=== PATIENT | female | born 1955 | race Caucasian/White ===

== ENCOUNTER → 2016-09-23 | Outpatient (CLI) | payer OTHER ==
--- NOTE | 2016-09-23 17:26 | PN ---
Chapis is coming in for a compliancy check. She is diagnosed having moderately severe obstructive sleep apnea with an AHI of 22. She is feeling better, yet she is still a bit somnolent and sleepy during the day with an [place] score of 13. She is feeling more refreshed during the day, but she was expecting more improvement than that. Upon further questioning, it seems that the mask that she was given was a bit uncomfortable, and she is waking up constantly throughout the night. For that reason I recommended changing her to a DreamWare small-size pillow. Meanwhile, the patient's compliancy was checked. Based on available data, the patient's average CPAP use is 6.7 hours per night and the patient's AHI is down to 1. Leak factor is only 2 L/minute and her CPAP use for more than 4 hours is 29 out of 30. She has fibromyalgia. BP is 150/70, pulse 94, respiration 16, temperature 98.2. Weight is 177. GENERAL APPEARANCE: Calm, comfortable. HEENT: Short neck. Crowding of the posterior pharynx. No goiter or neck mass. LUNGS: Clear to auscultation. HEART: Sounds are regular rate and rhythm. Normal S1, S2. ABDOMEN: Soft, nontender. No organomegaly. EXTREMITIES: No edema. No cyanosis or clubbing. IMPRESSION: 1. Symptomatic obstructive sleep apnea, moderate to severe; AHI of 22. The patient is benefitting from CPAP therapy. 2. Fibromyalgia. 3. Nocturnal arousals. 4. Chronic pain. 5. Chronic fatigue. 6. Hypertension. PLAN: 1. Switch this patient to DreamWare small-size nasal pillows. 2. Continue CPAP therapy with the same level of pressure. 3. Implement good sleep hygiene measures. 4. Follow up with Rheumatology regarding fibromyalgia. 5. See me back in a year's time in followup; earlier if needed.
== END | disposition home or self-care (01) ==
LOC: SLEEP 13:58
PROVIDERS: ATTEND Internal Medicine Critical Care Medicine
DX: G47.33 Obstructive sleep apnea (adult) (pediatric) (principal); M79.7 Fibromyalgia; G89.29 Other chronic pain; I10 Essential (primary) hypertension

== ENCOUNTER → 2018-01-19 | Outpatient (CLI) | payer MEDICARE, OTHER ==
--- NOTE | 2018-01-28 07:55 | HM ---
HOLTER MONITOR REPORT Patient was monitored for 24 hours. The baseline rhythm is sinus mechanism with intraventricular conduction delay. The average rate was 87 beats per minute, minimum 59, maximum 132 beats per minute. Ventricular ectopic activity was present in the form of rare single PVCs. Supraventricular ectopic activity was present in the form of occasional single PACs. Symptoms of palpitations did not correlate with any significant dysrhythmia. CONCLUSION: 1. Sinus mechanism baseline rhythm with intraventricular conduction delay. 2. Rare ventricular ectopic activity. 3. Occasional single PACs. 4. Symptoms did not correlate with any dysrhythmia. MMODL / IJN: [id number] /
== END | disposition home or self-care (01) ==
LOC: RADECHMAIN 12:27
PROVIDERS: ATTEND Family Medicine
DX: I49.3 Ventricular premature depolarization (principal); I49.1 Atrial premature depolarization
CPT/HCPCS: 93225; 93226

== ENCOUNTER → 2018-08-31 | Outpatient (CLI) | payer MEDICARE, OTHER ==
--- NOTE | 2018-08-31 21:59 | PN ---
PROGRESS NOTE SLEEP CENTER PROGRESS NOTE: Chapis is a 63-year-old female patient who is coming in for followup regarding obstructive sleep apnea. The patient is well known to me. The patient has sleep apnea, moderate to severe, with an AHI of 22. She has been utilizing CPAP at a pressure of 10 cm of water. She is a bit irritated with her CPAP use. She thinks that the nose mask is irritating her nose, and at times she takes it off and she is wondering whether this is going to be a permanent treatment of if there are any alternatives other than CPAP therapy. I checked her CPAP compliance data. The patient has been utilizing her CPAP 27 out of the past 30 days. Her CPAP use for more than 4 hours is . Average CPAP hours is 5.1 hours per night. AHI is down to 0.5. She is seeking other alternatives, including the Inspire system. I noted her blood pressure is elevated and the patient is having adjustments in her blood pressure medication by Dr. Barbour, her granite polisher. She remains on a combination of Celexa for chronic anxiety/depression, Zetia for hyperlipidemia and Motrin for pain. She is also on Wellbutrin in the morning. No other new complaints otherwise for now. REVIEW OF SYSTEMS: Fourteen-point review of systems was done. The positive findings are mentioned above in the history of present illness. PHYSICAL EXAMINATION: BP is 181/76, pulse 80, respirations 16, temperature 98.0. Weight is 173. Height is 5 feet 4 inches and BMI 29.6. GENERAL APPEARANCE: Calm, comfortable. Head is atraumatic, normocephalic. NECK: Supple. There is no JVD. No goiter or neck masses. Mallampati class IV. LUNGS: Clear to auscultation. Heart sounds are regular rate and rhythm. Normal S1, S2. No S3, S4. No murmurs. ABDOMEN: Soft, nontender. No organomegaly. EXTREMITIES: No edema. No cyanosis or clubbing. NEUROLOGIC: Alert and oriented x3. No focal neurological deficits. PSYCHIATRIC: Negative for anxiety or depression. IMPRESSION: 1. Obstructive sleep apnea, moderate to severe; apnea/hypopnea index 22. Treatment is successful, yet her compliance has been suboptimal due to comfort reasons. The patient is using AirFit P10 nose pillows. 2. Hypersomnia, recovered. 3. Hypertension. 4. Anxiety/depression. 5. Hyperlipidemia. PLAN: The patient has been stable. Her treatment has been extremely successful. I would suggest dropping the CPAP pressure down to 8 cm of water to see if there is going to be any improvement in her tolerability while being on CPAP treatment. Meanwhile, I think it is reasonable to re-evaluate this patient to see if there is any ongoing sleep apnea that needs to be further treated. I recommended that she undergo a home sleep study to assess this patient's sleep breathing disorder again. I do not think she is a good candidate for the Inspire system, taking into account that her disease is mild, and she is well treated with CPAP therapy. She will undergo a home sleep study. Her CPAP pressure has been dropped down to 8. She will see me back in followup for further advice after completion of the home sleep study. CHANTE / JANIE: [id number] /
== END ==
LOC: SLEEP 13:56
PROVIDERS: ATTEND Internal Medicine Critical Care Medicine
DX: G47.33 Obstructive sleep apnea (adult) (pediatric) (principal); I10 Essential (primary) hypertension; F32.9 Major depressive disorder, single episode, unspecified; F41.9 Anxiety disorder, unspecified; E78.5 Hyperlipidemia, unspecified; Z99.89 Dependence on other enabling machines and devices

== ENCOUNTER → 2021-01-30 | Outpatient (CLI) | payer MEDICARE ==
--- NOTE | 2021-01-30 11:28 | US ---
EXAMINATION TYPE: US abdomen complete DATE OF EXAM: 01/30/2021 COMPARISON: NONE CLINICAL HISTORY: K80.50 BILLARY COLIC. One instance of abdominal pain after eating jalapenos EXAM MEASUREMENTS: Liver Length: 12.5 cm Gallbladder Wall: 0.2 cm CBD: 0.4 cm Spleen: 9.0 cm Right Kidney: 9.9 x 3.3 x 5.1 cm Left Kidney: 9.8 x 3.8 x 3.4 cm Pancreas: Obscured by bowel gas Liver: wnl Gallbladder: wnl Evidence for sonographic Ng's sign: No CBD: wnl Spleen: wnl Right Kidney: No hydronephrosis or masses seen. Echogenic foci mid pole measuring 0.5 cm Left Kidney: No hydronephrosis or masses seen Upper IVC: wnl Abd Aorta: Atherosclerotic changes visualized. The liver is homogenous. The intrahepatic portion of the IVC and proximal abdominal aorta are within normal limits. There is no evidence of cholelithiasis. Common bile duct is unremarkable. The visu alized portions of the pancreas are homogenous. The spleen is unremarkable. Kidneys are symmetric a nd free of hydronephrosis. No renal lesions are seen. IMPRESSION: Suspect nonobstructing right-sided nephrolithiasis.
== END | disposition home or self-care (01) ==
LOC: RADUSWWP 09:26
PROVIDERS: ATTEND Family Medicine
DX: I70.0 Atherosclerosis of aorta (principal)
CPT/HCPCS: 76700

== ENCOUNTER → 2023-03-17 | Outpatient (CLI) | payer MEDICARE ==
--- NOTE | 2023-03-17 12:41 | MR ---
EXAMINATION TYPE: MR angio head wo con DATE OF EXAM: 03/17/2023 COMPARISON: CT brain C-spine 02/10/2023 HISTORY: Imbalance, memory loss, abnormal CT. TECHNIQUE: Time of flight images focusing on the [place] were performed without contrast. FINDINGS: There is no evidence for focal stenosis, large vessel occlusion, or discrete aneurysm. Hy poplastic anterior communicating and bilateral posterior communicating arteries. IMPRESSION: No evidence for focal stenosis, occlusion or aneurysm.
--- NOTE | 2023-03-17 13:20 | MR ---
EXAMINATION TYPE: MR brain wo con DATE OF EXAM: 03/17/2023 12:36 PM COMPARISON: MRA head 03/17/2023, CT brain C-spine 02/10/2023 CLINICAL INDICATION:Female, 68 years old with history of I67.9, R94.02 ABNORMAL BRAIN SCAN; [facility], TECHNIQUE: Multi planar, multi sequence imaging was performed through the brain. No gadolinium was gi christiano. FINDINGS: The aggarwal-white junctions, ventricular system, and cisterns appear unremarkable. Extensive confluent and patchy areas of high T2/FLAIR signal intensity are seen throughout the periventricular and subcor tical white matter. Additional regions identified within the brenda, medulla oblongata, and superior ce rebellar peduncle. Midline structures show no abnormality. Diffusion-weighted imaging shows no eviden ce of restricted diffusion. There is T2 shine through identified within the right parietal lobe corre sponding to small prior infarct. The susceptibility weighted images do not reveal any evidence for mi rf microwave engineer-hemorrhage. Age-appropriate cerebral brain volume The bone marrow signal is within normal limits. The paranasal sinuses are unremarkable. Bilateral aph graham. IMPRESSION: 1. No evidence of acute/subacute infarct. 2. Extensive confluent and patchy areas of T2/FLAIR signal white matter changes involving the periven tricular and subcortical white matter with additional regions involving the brenda, medulla oblongata, and superior cerebellar peduncle. Wide variety etiologies including multiple sclerosis versus small v essel ischemic disease versus other etiologies such as autoimmune disorders. Further workup is recomm ended. 3. 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
[2023-03-17 14:17] LABS: INR 0.9 (<1.2); Partial Thromboplastin Time 24.6 sec (22.0-30.0); Prothrombin Time 9.6 sec (9.0-12.0)
[2023-03-17 20:55] LABS: C Reactive Protein 0.3 mg/dL (0.00-0.80)
[2023-03-17 21:38] LABS: Cardiolipin Ab IgG Interp Negative (Negative); Cardiolipin Ab IgM Interp Negative (Negative); Cardiolipin IgA Antibody <2.0 U/mL; Cardiolipin IgM Antibody <1.5 U/mL
[2023-03-18 13:59] LABS: APTT 36 Sec(s) (<43); Dilute Russell Viper Venom 38 Sec(s) (<44)
== END | disposition home or self-care (01) ==
LOC: RADMRIMAIN 11:25
PROVIDERS: ATTEND Psychiatry & Neurology Neurology
DX: R94.02 Abnormal brain scan (principal); I67.9 Cerebrovascular disease, unspecified; R41.3 Other amnesia; R26.89 Other abnormalities of gait and mobility
CPT/HCPCS: 36415; 70544; 70551; 82607; 83090; 85610; 85613; 85652; 85730; 86038; 86140; 86147

== ENCOUNTER 2023-08-30 16:46 | Emergency (ER) | payer MEDICARE ==
--- NOTE | 2023-08-30 17:27 | ED ---
General Adult HPI <Marcell Arreguin - Last Filed: 08/30/23 17:27> <Viky Stern - Last Filed: 08/30/23 23:23> - General Stated complaint: Dizziness Time Seen by Provider: 08/30/23 17:26 - History of Present Illness Initial comments: 68-year-old female presenting to the ED with nausea. Patient reports over the past few days has had nausea and secondary to this has had difficulties getting food down. Patient now reports that she is starting to feel generalized weakness as well. Denies abdominal pain. (Marcell Arreguin) 68-year-old female with complaint of of multiple days of nausea decreased oral intake resulting in her feeling lightheaded and weak. Patient states she is concerned that she is dehydrated. Patient reports she has not had any abdominal pain just feels nauseated. No fevers or chills no dysuria no change in bladder habits. She does report she has not had a bowel movement in 1 to 2 days but attributes this to decreased oral intake. Denies any chest pain or palpitations. (Viky Stern) - Related Data Home Medications Medication Instructions Recorded Confirmed Ezetimibe [Zetia] 10 mg PO DAILY 08/18/15 08/18/15 PARoxetine HCL [Paxil] 30 mg PO DAILY 08/18/15 08/18/15 amLODIPine BES/OLMESARTAN MED 1 tab PO DAILY 08/18/15 08/18/15 [Joan 10-40 mg Tablet] Previous Rx's Medication Instructions Recorded Albuterol Inhaler [Ventolin 1 - 2 puff INHALATION Q6HR PRN #1 08/18/15 Inhaler] inhaler Promethaz-Cod 6.25-10 mg/5 ml 5 ml PO Q6HR PRN #100 ml 08/18/15 [Phenergan with Codeine] Ondansetron [Zofran] 4 mg PO Q8HR PRN #12 tab 08/30/23 Allergies Allergy/AdvReac Type Severity Reaction Status Date / Time No Known Allergies Allergy Verified 02/10/23 18:06 Review of Systems ROS Other: All systems not noted in ROS Statement are negative. <Marcell Arreguin - Last Filed: 08/30/23 17:27> ROS Other: All systems not noted in ROS Statement are negative. <Viky Stern - Last Filed: 08/30/23 23:23> ROS Statement: Those systems with pertinent positive or pertinent negative responses have been documented in the HPI. Past Medical History Past Medical History: Asthma, Hyperlipidemia, Hypertension History of Any Multi-Drug Resistant Organisms: None Reported Past Surgical History: Tonsillectomy Past Psychological History: Anxiety, Depression Smoking Status: Never smoker Past Alcohol Use History: None Reported Past Drug Use History: None Reported <Marcell Arreguin - Last Filed: 08/30/23 17:27> General Exam <Marcell Arreguin - Last Filed: 08/30/23 17:27> <Viky Stern - Last Filed: 08/30/23 23:23> - General Exam Comments Initial Comments: Visual Physical Exam Vital signs reviewed General: Well-appearing, nontoxic, no acute distress. Head: Normocephalic, atraumatic Eyes: PERRLA, EOMI ENT: Airway patent Chest: Nonlabored breathing Skin: No visual rash, normal skin tone Neuro: Alert and oriented 3 Musculoskeletal: No gross abnormalities (Marcell Arreguin) Physical Exam GENERAL: Patient is well-developed and well-nourished. Patient is nontoxic and well-hydrated and is in no distress. HENT: Normocephalic, Atraumatic. EYES: PERRL, EOMI PULMONARY: Unlabored respirations. CARDIOVASCULAR: RRR Warm and well perfused extremities ABDOMEN: Soft, nondistended nontender SKIN: No rashes or bruising : Deferred NEUROLOGIC: Alert and oriented Normal speech Normal gait MUSCULOSKELETAL: Moving all extremities with no apparent injury PSYCHIATRIC: No SI/HI (Viky Stern) Course Vital Signs 08/30/23 08/30/23 08/30/23 17:24 19:53 22:05 Temperature 97 F L Pulse Rate 81 80 78 Respiratory 16 18 18 Rate Blood Pressure 171/86 177/94 172/102 O2 Sat by Pulse 98 98 98 Oximetry Medical Decision Making <Marcell Arreguin - Last Filed: 08/30/23 17:27> - Lab Data Result diagrams: 08/30/23 17:27 08/30/23 17:27 <Viky Stern - Last Filed: 08/30/23 23:23> - Medical Decision Making Quicknote portion performed. Signed Marcell Arreguin PA-C (Marcell Arreguin) Was pt. sent in by a medical professional or institution (MONSTER Angulo, ENTRY LEVEL STAFF ACCOUNTANT, urgent care, hospital, or half-way...) When possible be specific @ -No Did you speak to anyone other than the patient for history (EMS, parent, family, police, friend...)? What history was obtained from this source @ -No Did you review nursing and triage notes (agree or disagree)? Why? @ -I reviewed and agree with nursing and triage notes Were old charts reviewed (outside hosp., previous admission, EMS record, old EKG, old radiological studies, urgent care reports/EKG's, half-way records)? Report findings @ -No old charts were reviewed Differential Diagnosis (chest pain, altered mental status, abdominal pain women, abdominal pain men, vaginal bleeding, weakness, fever, dyspnea, syncope, headache, dizziness, GI bleed, back pain, seizure, CVA, palpatations, mental health)? @ -Differential Weakness: Hypoglycemia, shock, sepsis, hyponatremia, anemia, infection, UT, ETOH, adverse medicine reaction, overdose, stroke, this is not meant to be an all-inclusive list. EKG interpreted by me (3pts min.). @ -As above X-rays interpreted by me (1pt min.). @ -None done CT interpreted by me (1pt min.). @ -None done U/S interpreted by me (1pt. min.). @ -None done What testing was considered but not performed or refused? (CT, X-rays, U/S, labs)? Why? @ -None What meds were considered but not given or refused? Why? @ -None Did you discuss the management of the patient with other professionals (professionals i.e. MONSTER Angulo, ENTRY LEVEL STAFF ACCOUNTANT, lab, RT, psych nurse, social media community manager, tax analyst, t eacher, cra officer, case resource manager)? Give summary @ -No Was smoking cessation discussed for >3mins.? @ -No Was critical care preformed (if so, how long)? @ -No Were there social determinants of health that impacted care today? How? (Homelessness, low income, unemployed, alcoholism, drug addiction, transportation, low edu. Level, literacy, decrease access to med. care, half-way, rehab)? @ -No Was there de-escalation of care discussed even if they declined (Discuss DNR or withdrawal of care, Hospice)? DNR status @ -No What co-morbidities impacted this encounter? (DM, HTN, Smoking, COPD, CAD, Cancer, CVA, ARF, Chemo, Hep., AIDS, mental health diagnosis, sleep apnea, morbid obesity)? @ -None Was patient admitted / discharged? Hospital course, mention meds given and route, prescriptions, significant lab abnormalities, going to OR and other pertinent info. @ -Discharged The patient was initially evaluated by PA in [facility], labs were obtained and patient was treated with IV fluids. Blood work was essentially unremarkable patient received 1 L IV fluid and reported feeling much better eager for discharge home. Patient will be discharged home with a prescription for Zofran to treat her nausea to increase oral intake. Undiagnosed new problem with uncertain prognosis? @ -No Drug Therapy requiring intensive monitoring for toxicity (Heparin, Nitro, Insulin, Cardizem)? @ -No Were any procedures done? @ -No Diagnosis/symptom? @ -nausea and dehydration Acute, or Chronic, or Acute on Chronic? @ -Acute Uncomplicated (without systemic symptoms) or Complicated (systemic symptoms)? @ -Complicated Side effects of treatment? @ -No Exacerbation, Progression, or Severe Exacerbation? @ -No Poses a threat to life or bodily function? How? (Chest pain, USA, UT, pneumonia, PE, COPD, DKA, ARF, appy, cholecystitis, CVA, Diverticulitis, Homicidal, Suicidal, threat to staff... and all critical care pts) @ -Unlikely (Viky Stern) - Lab Data Lab Results 08/30/23 08/30/23 08/30/23 Range/Units 17:27 17:27 17:27 WBC 9.7 (3.8-10.6) k/uL RBC 5.53 H (3.80-5.40) m/uL Hgb 15.8 (11.4-16.0) gm/dL Hct 49.4 H (34.0-46.0) % MCV 89.2 (80.0-100.0) fL MCH 28.6 (25.0-35.0) pg MCHC 32.0 (31.0-37.0) g/dL RDW 12.9 (11.5-15.5) % Plt Count 152 (150-450) k/uL MPV 8.1 Neutrophils % 82 % Lymphocytes % 9 % Monocytes % 7 % Eosinophils % 1 % Basophils % 0 % Neutrophils # 8.0 H (1.3-7.7) k/uL Lymphocytes # 0.8 L (1.0-4.8) k/uL Monocytes # 0.7 (0-1.0) k/uL Eosinophils # 0.1 (0-0.7) k/uL Basophils # 0.0 (0-0.2) k/uL Sodium 140 (137-145) mmol/L Potassium 3.2 L (3.5-5.1) mmol/L Chloride 103 (98-107) mmol/L Carbon Dioxide 23 (22-30) mmol/L Anion Gap 14 mmol/L BUN 18 H (7-17) mg/dL Creatinine 1.14 H (0.52-1.04) mg/dL Est GFR (CKD-EPI)AfAm 58 (>60 ml/min/1.73 sqM) Est GFR (CKD-EPI)NonAf 50 (>60 ml/min/1.73 sqM) Glucose 111 H (74-99) mg/dL Calcium 9.7 (8.4-10.2) mg/dL Total Bilirubin 0.7 (0.2-1.3) mg/dL AST 26 (14-36) U/L ALT 17 (4-34) U/L Alkaline Phosphatase 87 (38-126) U/L Total Protein 7.0 (6.3-8.2) g/dL Albumin 4.5 (3.5-5.0) g/dL Amylase 52 (30-110) U/L Lipase 130 (23-300) U/L Urine Color Yellow Urine Appearance Clear (Clear) Urine pH 6.0 (5.0-8.0) Ur Specific [place] 1.022 (1.001-1.035) Urine Protein Trace H (Negative) Urine Glucose (UA) Negative (Negative) Urine Ketones 1+ H (Negative) Urine Blood Small H (Negative) Urine Nitrite Negative (Negative) Urine Bilirubin Negative (Negative) Urine Urobilinogen <2.0 (<2.0) mg/dL Ur Leukocyte Esterase Negative (Negative) Urine RBC 4 (0-5) /hpf Urine WBC 2 (0-5) /hpf Ur Squamous Epith Cells <1 (0-4) /hpf Urine Mucus Moderate H (None) /hpf Influenza Type A (PCR) (Not Detectd) Influenza Type B (PCR) (Not Detectd) RSV (PCR) (Not Detectd) SARS-CoV-2 (PCR) (Not Detectd) 08/30/23 Range/Units 19:52 WBC (3.8-10.6) k/uL RBC (3.80-5.40) m/uL Hgb (11.4-16.0) gm/dL Hct (34.0-46.0) % MCV (80.0-100.0) fL MCH (25.0-35.0) pg MCHC (31.0-37.0) g/dL RDW (11.5-15.5) % Plt Count (150-450) k/uL MPV Neutrophils % % Lymphocytes % % Monocytes % % Eosinophils % % Basophils % % Neutrophils # (1.3-7.7) k/uL Lymphocytes # (1.0-4.8) k/uL Monocytes # (0-1.0) k/uL Eosinophils # (0-0.7) k/uL Basophils # (0-0.2) k/uL Sodium (137-145) mmol/L Potassium (3.5-5.1) mmol/L Chloride (98-107) mmol/L Carbon Dioxide (22-30) mmol/L Anion Gap mmol/L BUN (7-17) mg/dL Creatinine (0.52-1.04) mg/dL Est GFR (CKD-EPI)AfAm (>60 ml/min/1.73 sqM) Est GFR (CKD-EPI)NonAf (>60 ml/min/1.73 sqM) Glucose (74-99) mg/dL Calcium (8.4-10.2) mg/dL Total Bilirubin (0.2-1.3) mg/dL AST (14-36) U/L ALT (4-34) U/L Alkaline Phosphatase (38-126) U/L Total Protein (6.3-8.2) g/dL Albumin (3.5-5.0) g/dL Amylase (30-110) U/L Lipase (23-300) U/L Urine Color Urine Appearance (Clear) Urine pH (5.0-8.0) Ur Specific [place] (1.001-1.035) Urine Protein (Negative) Urine Glucose (UA) (Negative) Urine Ketones (Negative) Urine Blood (Negative) Urine Nitrite (Negative) Urine Bilirubin (Negative) Urine Urobilinogen (<2.0) mg/dL Ur Leukocyte Esterase (Negative) Urine RBC (0-5) /hpf Urine WBC (0-5) /hpf Ur Squamous Epith Cells (0-4) /hpf Urine Mucus (None) /hpf Influenza Type A (PCR) Not Detected (Not Detectd) Influenza Type B (PCR) Not Detected (Not Detectd) RSV (PCR) Not Detected (Not Detectd) SARS-CoV-2 (PCR) Not Detected (Not Detectd) Disposition <Marcell Arreguin - Last Filed: 08/30/23 17:27> Is patient prescribed a controlled substance at d/c from ED?: No <Viky Stern - Last Filed: 08/30/23 23:23> Clinical Impression: Nausea Disposition: HOME SELF-CARE Condition: Stable Prescriptions: Ondansetron [Zofran] 4 mg PO Q8HR PRN #12 tab PRN Reason: Nausea Referrals: Jerardo Yuen MD [Primary Care Provider] - 1-2 days
[2023-08-30 17:35] VITALS: TEMP 97
[2023-08-30 18:13] LABS: Basophils % (A) 0 %; Eosinophils # (A) 0.1 k/uL (0-0.7); Eosinophils % (A) 1 %; HCT 49.4 % (34.0-46.0); HGB 15.8 gm/dL (11.4-16.0); Lymphocytes # (A) 0.8 k/uL (1.0-4.8); Lymphocytes % (A) 9 %; MCH 28.6 pg (25.0-35.0); MCV 89.2 fL (80.0-100.0); Mean Platelet Volume 8.1; Monocytes # (A) 0.7 k/uL (0-1.0); Monocytes % (A) 7 %; Neutrophils % (A) 82 %; Platelet Count 152 k/uL (150-450); RBC 5.53 m/uL (3.80-5.40); RDW 12.9 % (11.5-15.5); WBC 9.7 k/uL (3.8-10.6)
[2023-08-30 18:27] LABS: ALT 17 U/L (4-34); AST 26 U/L (14-36); African American GFR (CKD) 58 (>60 ml/min/1.73 sqM); Albumin 4.5 g/dL (3.5-5.0); Alkaline Phosphatase 87 U/L (38-126); Amylase 52 U/L (30-110); Anion Gap 14 mmol/L; Blood Urea Nitrogen 18 mg/dL (7-17); Calcium 9.7 mg/dL (8.4-10.2); Carbon Dioxide 23 mmol/L (22-30); Chloride 103 mmol/L (98-107); Glucose 111 mg/dL (74-99); Lipase 130 U/L (23-300); Non-African American GFR(CKD) 50 (>60 ml/min/1.73 sqM); Potassium 3.2 mmol/L (3.5-5.1); Sodium 140 mmol/L (137-145); Total Bilirubin 0.7 mg/dL (0.2-1.3)
[2023-08-30 19:03] LABS: Appearance,Urine Clear (Clear); Bilirubin,Urine Negative (Negative); Blood,Urine Small (Negative); Color,Urine Yellow; Glucose,Urine (UA) Negative (Negative); Ketones,Urine 1+ (Negative); Leukocyte Esterase,Urine Negative (Negative); Mucus,Urine Moderate /hpf; Nitrite,Urine Negative (Negative); Protein,Urine Trace (Negative); RBC,Urine 4 /hpf (0-5); Specific Gravity,Urine 1.022 (1.001-1.035); Squamous Epithelial Cell,Urine <1 /hpf (0-4); Urobilinogen,Urine <2.0 mg/dL (<2.0); WBC,Urine 2 /hpf (0-5)
[2023-08-30 20:18] VITALS: RESP 18
[2023-08-30] MEDS: SODIUM CHLORIDE 0.9% 1,000 ML IV ONE (20:39)
[2023-08-30] MEDS: POTASSIUM CHLORIDE ER 20 MEQ TAB.ER PO STA (21:17)
[2023-08-30 22:46] VITALS: BP 172/102; PULSE 78
== END 2023-08-30 22:19 | disposition home or self-care (01) ==
LOC: EC 16:46
DX: R11.0 Nausea (principal); F12.90 Cannabis use, unspecified, uncomplicated
CPT/HCPCS: 36415; 80053; 81001; 82150; 83690; 85025; 87636; 96360; 99284

== ENCOUNTER → 2024-04-28 | Outpatient (CLI) | payer MEDICARE ==
--- NOTE | 2024-05-02 17:31 | MM ---
Reason for Exam: Screening (asymptomatic). Last mammogram was performed 1 year(s) and 8 month(s) ago. Patient History: Menarche at age 15. First Full-Term at age 22. Postmenopausal. Maternal grandmother had breast cancer, age 50. Risk Values: Carlene 5 year model risk: 1.4%. NCI Lifetime model risk: 4.6%. Prior Study Comparison: 09/02/2021 Bilateral Screening Mammogram, [facility]. 09/04/2022 Bilateral Screening Mammogram, [facility]. Tissue Density: The breasts are heterogeneously dense, which may obscure small masses. Findings: Analyzed By CAD. Unchanged coarse calcifications in both sides. Chronic bilateral nodularity. Asymmetric density central outer left CC view posterior depth appears more defined. This may represent superimposition shadow but further evaluation is recommended. Similarly, asymmetric density subareolar right MLO view for which further evaluation is recommended. Overall Assessment: Incomplete: need additional imaging evaluation, BI-RAD 0 Management: Special View Mammogram of both breasts. . [facility] will attempt to contact patient to return for supplemental views and ultrasound if indicated. [facility], , 05/02/2024 5:28 PM. Electronically signed and approved by: Tao Alaniz M.D. Radiologist
== END | disposition home or self-care (01) ==
LOC: RADMAMWWP 12:25
PROVIDERS: ATTEND Family Medicine
DX: Z12.31 Encounter for screening mammogram for malignant neoplasm of breast (principal); Z78.0 Asymptomatic menopausal state; Z80.3 Family history of malignant neoplasm of breast; R92.333 Mammographic heterogeneous density, bilateral breasts
CPT/HCPCS: 77067

== ENCOUNTER → 2024-05-10 | Outpatient (CLI) | payer MEDICARE ==
--- NOTE | 2024-05-10 11:20 | MM ---
Reason for Exam: Additional evaluation requested from abnormal screening. Last screening mammogram was performed less than 1 month ago. Patient History: Menarche at age 15. First Full-Term at age 22. Postmenopausal. Maternal grandmother had breast cancer, age 50. Risk Values: Carlene 5 year model risk: 1.4%. NCI Lifetime model risk: 4.6%. Prior Study Comparison: 09/04/2022 Bilateral Screening Mammogram, [facility]. 04/28/2024 Bilateral MG screening mammo w CAD, [facility]. Tissue Density: The breasts are heterogeneously dense, which may obscure small masses. Findings: Analyzed By CAD. On the left, the posterior outer asymmetric density becomes less defined with an appearance unchanged from prior exams. Findings compatible with superimposition shadow. Underlying post excisional changes on the left. On the right, the questioned area of subareolar asymmetric density on the MLO view does not persist. Findings compatible with superimposition shadow. Overall Assessment: Benign, BI-RAD 2 Management: Screening Mammogram of both breasts in 1 year. Results were given to the patient verbally at the time of exam. Patient should continue monthly self-breast exams. A clinical breast exam by your physician is recommended on an annual basis. This exam should not preclude additional follow-up of suspicious palpable abnormalities. Note on Carlene scores and lifetime risk: 1. A Carlene score greater than 3% is considered moderate risk. If this is the case, consider specialist referral to assess eligibility for a risk reducing agent. 2. If overall lifetime risk for the development of breast cancer is 20% or higher, the patient may qualify for future screening with alternating mammogram and breast MRI. [facility], , 05/10/2024 11:17 AM. Electronically signed and approved by: Tao Alaniz M.D. Radiologist
== END | disposition home or self-care (01) ==
LOC: RADMAMWWP 10:47
PROVIDERS: ATTEND Family Medicine
DX: R92.8 Other abnormal and inconclusive findings on diagnostic imaging of breast (principal); Z78.0 Asymptomatic menopausal state; Z80.3 Family history of malignant neoplasm of breast; R92.333 Mammographic heterogeneous density, bilateral breasts
CPT/HCPCS: 77066; G0279; 77062

== ENCOUNTER → 2024-10-08 | Outpatient (CLI) | payer MEDICARE ==
--- NOTE | 2024-10-08 13:11 | MR ---
INDICATION: Patient age:Female; 69 years old; Reason for study: I63.9 CEREBRAL INFARCTION, UNSPECIFIED; [facility]. COMPARISON: MRI brain 03/17/2023, MRA head 03/17/2023, CT brain C-spine 02/10/2023. TECHNIQUE: Multi planar, multi sequence imaging was performed through the brain without the administr ation of intravenous contrast. FINDINGS: FINDINGS: The aggarwal-white junctions, ventricular system, and cisterns appear unremarkable. Similar extensive co nfluent and patchy areas of high T2/FLAIR signal intensity are seen throughout the periventricular an d subcortical white matter. Additional regions identified within the brenda, medulla oblongata, and sup erior cerebellar peduncle. Midline structures show no abnormality. Diffusion-weighted imaging shows n o evidence of restricted diffusion. There is T2 shine again identified within the right parietal lobe corresponding to small prior infarct with gliosis. The susceptibility weighted images demonstrate a single focus of blooming artifact along the right insula consistent with prior hemosiderin deposition . Age-appropriate cerebral brain volume The bone marrow signal is within normal limits. The paranasal sinuses are unremarkable. Bilateral aph graham. IMPRESSION: 1. No evidence of acute/subacute infarct. 2. Similar extensive confluent and patchy areas of T2/FLAIR signal white matter changes involving the periventricular and subcortical white matter with additional regions involving the brenda, medulla obl ongata, and superior cerebellar peduncle. Etiologies include benign disease, small vessel ischemic di sease, chronic migraines, vasculitis, Lyme disease and other considerations. 3. 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 [facility], , 10/08/2024 1:09 PM
== END | disposition home or self-care (01) ==
LOC: RADMRIMAIN 12:18
PROVIDERS: ATTEND Psychiatry & Neurology Neurology
DX: I63.9 Cerebral infarction, unspecified (principal); G43.909 Migraine, unspecified, not intractable, without status migrainosus; A69.20 Lyme disease, unspecified; I67.7 Cerebral arteritis, not elsewhere classified
CPT/HCPCS: 70551